=== PATIENT | male | born 1985 | race Caucasian/White ===

== ENCOUNTER → 2022-10-07 | Outpatient (REF) | payer OTHER, BC ==
[2022-10-07 10:19] LABS: SEMEN APPEARANCE OPAQUE (OPAQUE); SEMEN VISCOSITY LIQUID (LIQUID); SEMEN VOLUME 1.1 ml (2.0-5.0); WBC CONCENTRATION <=1 M/ml (<=1 M/ml)
== END ==
LOC: M SMT 09:51
PROVIDERS: ATTEND Urology
DX: Z30.8 Encounter for other contraceptive management (principal)